=== PATIENT | male | born 1950 | race African-American/Black ===

== ENCOUNTER 2017-11-09 10:06 | Emergency (ER) | payer MEDICARE, MEDICAID ==
[~2017-11-09] VITALS: Ht 165.1 cm; Wt 113.6 kg
[2017-11-09 10:09] VITALS: Ht 165.1 cm; Wt 113.6 kg
[2017-11-09] MEDS ORDERED: CATAPRES0.1 MG PO (10:11)
[2017-11-09] MEDS ORDERED: NORVASC5 MG PO (10:53)
[2017-11-09 11:37] VITALS: BP 168/92
== END 2017-11-09 11:39 | disposition home or self-care (01) ==
LOC: D.ER 10:06
DX: G89.18 Other acute postprocedural pain (principal); I10 Essential (primary) hypertension